=== PATIENT | female | born 1950 | race Caucasian/White ===

== ENCOUNTER 2023-12-20 15:14 | Emergency (ER) | payer MEDICARE, OTHER, SELFPAY ==
[2023-12-20 15:36] VITALS: BP 104/63; PULSE 66; RESP 16; TEMP 36.3; O2SAT 99
--- NOTE | 2023-12-20 15:37 | ED.SKABFB ---
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 Rash is described as itchy red or blistered lesions to face, neck, torso and arms. She states rash started while in [place], and she requested new linens in the hotel. she traveled home and has continued to notice new blisters. Contacted her pcp who prescribed triamcinolone cream without much relief. Denies recent illness or flu-like symptoms. Denies history of chicken pox. Also reports a recent tick bite to right lower leg which has now resolved. Denies lip, tongue, or throat swelling, shortness of breath or wheezing. Denies changes to soap, lotion, or any other exposures. No one else in the house or any contacts with similar symptoms. Related Data Home Medications Medication Instructions Recorded Confirmed aspirin 81 mg tablet,delayed 81 mg PO DAILY 09/27/21 12/20/23 release (Adult Low Dose Aspirin) nitroglycerin 0.4 mg sublingual 0.4 mg sublingual Q5M PRN Chest 09/30/21 12/20/23 tablet Pain Allergies Allergy/AdvReac Type Severity Reaction Status Date / Time clindamycin Allergy Mild Nausea Verified 12/20/23 15:32 guaifenesin [From Mucinex] Allergy Mild Nausea Verified 12/20/23 15:32 amoxicillin Allergy Unknown Unknown Verified 12/20/23 15:32 atorvastatin Allergy Unknown Unknown Verified 12/20/23 15:32 simvastatin Allergy Unknown Unknown Verified 12/20/23 15:32 Docdyqb-KNU-BrW Reductase Allergy Unknown Unknown Verified 12/20/23 15:32 Inhibitor [Jczyzga-Glb-Oej Reductase Inhibitor] DAVID SEEDS Allergy Unknown Unknown Uncoded 12/20/23 15:32 levofloxacin AdvReac Severe Joint Pain Uncoded 12/20/23 15:32 Review of Systems Review of Systems: CONSTITUTIONAL: Denies body aches, fever, chills, or sweats. EYES: Denies visual changes, redness, or discharge. ENT: Denies rhinorrhea, congestion CARDIOVASCULAR: Denies chest pain, palpitations, or edema. RESPIRATORY: Denies cough or dyspnea. GASTROINTESTINAL: Denies abdominal pain, nausea, vomiting, or diarrhea. SKIN: reports rash MUSCULOSKELETAL: Denies back pain, joint pain, or myalgia. NEUROLOGIC: Denies headache, numbness, tingling, or weakness. [facility] Past Medical History Medical History (Updated 12/20/23 @ 17:18 by Annamaria Dominguez APRN) Essential (primary) hypertension Surgical History Surgical History Hx of heart artery stent Family History Family History Father Anemia Mother Heart disease Sibling Diabetes mellitus Social History Social History Smoking packs per day: 0.5 Smoking cigarettes per day: 10.0 Years smoked: 40 Smoking pack-years: 20.00 Smoking status: Former smoker Tobacco type: cigarettes Second hand tobacco smoke exposure: No Smoking end date: 05/10/16 Alcohol intake: current Alcohol use details: Daily Substance use: never Substance use type: does not use Lack of Transportation: No Lack of Food: Never True Current Housing: I Have Housing Concerned About Future Housing: No Difficulty Paying Gas/Electric Bills: No Difficulty Paying for Meds: Decline to Answer Currently Unemployed: No Education: Bachelor's Degree Difficulty w/ Childcare or Family Care: No Living arrangements: alone Occupation/Education: retired Gender identity (if verbalized by the patient): Female Sexual Orientation (if Verbalized by the Patient): Straight or Heterosexual Spiritual care concerns: No Agree to blood products: Yes Comments At time of signature, I have reviewed and agree with nursing past medical
== END 2023-12-20 17:20 | disposition home or self-care (01) ==
PROVIDERS: Emergency Provider Nurse Practitioner Family; PCP Family Medicine Adolescent Medicine
DX: B09 Unspecified viral infection characterized by skin and mucous membrane lesions (principal); I10 Essential (primary) hypertension; Z87.891 Personal history of nicotine dependence
CPT/HCPCS: 87252; 99213; G0463